=== PATIENT | female | born 1955 | race Caucasian/White ===

== ENCOUNTER → 2016-09-25 | Outpatient (REF) | payer SELFPAY ==
[2016-09-25 21:26] LABS: BACTERIA, URINE NONE SEEN; RBC, URINE 0-1 /hpf (0-3); SQUAMOUS EPITHELIAL CELL URINE SMALL AMOUNT /hpf (SMALL AMT)
[2016-09-25 21:27] LABS: HYALINE CAST, URINE NONE SEEN /lpf (0-1); MICROSCOPIC EXAM PERFORMED
== END ==
LOC: M LAB REF 17:21
PROVIDERS: ATTEND Internal Medicine Nephrology
DX: R31.9 Hematuria, unspecified (principal); I10 Essential (primary) hypertension; R80.9 Proteinuria, unspecified

== ENCOUNTER → 2017-03-25 | Outpatient (CLI) | payer OTHER ==
[~2017-03-25] MED LIST: AMLO10TA2 PO; ASPI1TAB PO; COUM1TAB17 PO; HYDR25TAB PO; LOSA50TA20 PO; NITR0.4S14 SL; OXYC1TAB23 PO; PRAV20TA2 PO; SERT50TA PO; TYLE650T35 PO; VITA1CAP7 PO
--- NOTE | 2017-03-25 10:52 | ECGEPIP ---
Stationary ECG Study [facility] Test Date: 2017-03-25 Pat Name: MACHO OSPINA Department: Room: - Gender: F Computer Technology Teacher: : 1955 Requested By: Jes Lopez Order Number: [id number] Reading MD: Jerilyn Leonardo Measurements Intervals [place] Rate: 50 P: 42 TX: 166 QRS: 55 QRSD: 104 T: 42 QT: 481 QTc: 441 Interpretive Statements SINUS BRADYCARDIA WITH MARKED SINUS ARRHYTHMIA NO PRIOR Electronically Signed On 03-25-2017 10:51:51 EDT by Jerilyn Leonardo
[2017-03-25 11:03] LABS: MEAN CORPUSCULAR HEMOGLOBIN 30.3 pg (27.0-33.0); MEAN CORPUSCULAR VOLUME 88.9 fl (80.0-96.0); RED CELL DISTRIBUTION WIDTH 12.9 % (11.5-14.5); WHITE BLOOD COUNT 5.2 10^3/uL (4.0-10.0)
[2017-03-25 11:11] LABS: ALBUMIN 3.8 GM/DL (3.2-5.2); ALBUMIN/GLOBULIN RATIO 1.12 (1.00-1.93); ALKALINE PHOSPHATASE 72 U/L (45-117); ALT/SGPT 40 U/L (12-78); ANION GAP 7 MEQ/L (8-16); AST/SGOT 24 U/L (15-37); BILIRUBIN,TOTAL 0.7 MG/DL (0.2-1.0); BLOOD UREA NITROGEN 12 MG/DL (7-18); CALCIUM LEVEL 9.8 MG/DL (8.8-10.2); CARBON DIOXIDE LEVEL 31 MEQ/L (21-32); CHLORIDE LEVEL 100 MEQ/L (98-107); CREATININE FOR GFR 0.56 MG/DL (0.55-1.02); GLOMERULAR FILTRATION RATE > 60.0 (>45); GLUCOSE, FASTING 105 MG/DL (80-110); POTASSIUM SERUM 4.2 MEQ/L (3.5-5.1); SODIUM LEVEL 138 MEQ/L (136-145); TOTAL PROTEIN 7.2 GM/DL (6.4-8.2)
[2017-03-25 11:13] LABS: INR 0.83
--- NOTE | 2017-03-26 01:42 | REP ---
Clinical: Arthritis . Comparison: None . Technique: PA and lateral. Findings: The mediastinum and cardiac silhouette are normal. The lung cortes are clear and without acute consolidation, effusion, or pneumothorax. The skeletal structures demonstrate age-related degenerative changes to the thoracic spine and relatively normal, age-appropriate bilateral shoulders. Impression: 1. No acute cardiopulmonary process. Signed by Mert Vitale MD 03/26/2017 01:33 A
== END ==
LOC: M ADMPAT 09:07
PROVIDERS: ATTEND Orthopaedic Surgery
DX: M17.12 Unilateral primary osteoarthritis, left knee (principal)

== ENCOUNTER 2017-04-01 09:09 | Inpatient (IN) | payer OTHER ==
[2017-03-25 10:05] VITALS: BP 124/64
--- NOTE | 2017-03-28 18:56 | HPE ---
DATE OF ADMISSION: 04/01/2017 HISTORY OF PRESENT ILLNESS: Mrs. Siddiqi is a pleasant female with continuing symptomatic left knee osteoarthritis. She consented for a left total knee arthroplasty per Dr. John Santamaria. Medical optimization per Starr Thompson. X-rays were consistent with advanced osteoarthritis. ALLERGIES: NAPROSYN. CURRENT MEDICATION LIST: Includes: - hydrochlorothiazide 50 mg - amlodipine besylate 10 mg - losartan potassium 50 mg - nitroglycerin 0.4 mg - magnesium 500 mg - vitamin D3, 5000 units - cimetidine 200 mg MEDICAL PROBLEM LIST: Includes: Symptomatic left knee osteoarthritis. Essential hypertension. Pure hypercholesterolemia. SURGICAL HISTORY: Coronary artery stenting in 2013. FAMILY HISTORY: Is positive for arthritis, diabetes, hypertension, hypercholesterolemia, and cancer. She is a former smoker. Consumes alcohol daily. Denies illicit drugs. REVIEW OF SYSTEMS: The patient denies chest pain, shortness of breath, dyspnea on exertion, fevers, chills, malaise, upper respiratory or urinary tract symptoms. PHYSICAL EXAMINATION: She is a pleasant, overweight female in no acute distress. Alert and oriented times three. Mood and affect are appropriate. Weight 173. Body Mass Index (BMI) 28.8. Height 65 inches. Temperature 98.1. There were no gross deformities about the lower extremities. She has positive tenderness to palpation about the left knee with crepitance and medial joint line tenderness. Bowel soft, nontender times four. Chest rises symmetrically. Neck supple; negative jugular venous distention (JVD) or bruits. Normocephalic. Lab, diagnostics, EKG, and chest x-ray were reviewed and were within normal limits. IMPRESSION: 1. Symptomatic left knee osteoarthritis. 2. Patient consented for a total knee arthroplasty per Dr. John Santamaria. 3. Medical optimization per Dr. Thompson. 4. 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 5. Sequential compression device (SCD) and thromboembolism deterrents (TEDs) in OR. Edited: zoe 04/01/2017 [id number] MTDD
[~2017-04-01] VITALS: Ht 160 cm; Wt 74.4 kg
[~2017-04-01 09:09] MED LIST changes: -COUM1TAB17 PO; -OXYC1TAB23 PO
[2017-04-01] MEDS ORDERED: ACETAMINOPHEN 500 MG TAB PO ONE (13:45)
[2017-04-01] MEDS ORDERED: LR 1,000 ML IV SCH ×3 (13:45→19:00)
[2017-04-01] MEDS ORDERED: fentaNYL 100 MCG/2 ML INJECTION (J3010) As Ordered ONE ×2 (14:26→15:38)
[2017-04-01] MEDS ORDERED: MIDAZOLAM INJ 2 MG/2 ML VIAL (J2250) As Ordered ONE ×2 (14:26→15:38)
[2017-04-01] MEDS ORDERED: ASPIRIN 81 MG CHEW TABLET PO ONE (15:00)
[2017-04-01] MEDS ORDERED: SCOPOLAMINE 1.5 MG TRANSDERMAL As Ordered ONE (15:01)
[2017-04-01] MEDS ORDERED: ASPIRIN 81 MG CHEW TABLET As Ordered ONE (15:03)
[2017-04-01] MEDS ORDERED: SCOPOLAMINE 1.5 MG TRANSDERMAL TOP ONE (15:30)
[2017-04-01] MEDS: fentaNYL 100 MCG/2 ML INJECTION (J3010) IV ONE ×2 (15:30→16:31)
[2017-04-01] MEDS: MIDAZOLAM INJ 2 MG/2 ML VIAL (J2250) IV ONE ×2 (15:31→16:31)
[2017-04-01] MEDS ORDERED: LIDOCAINE 2% INJ 100 MG/5 ML SDV (FOR ANES.) As Ordered ONE ×2 (15:38→17:59)
[2017-04-01] MEDS ORDERED: PROPOFOL 200 MG/20 ML VIAL As Ordered ONE ×3 (15:38→17:59)
[2017-04-01] MEDS ORDERED: ePHEDrine SULFATE 25 MG/5 ML(5MG/ML) SYRINGE As Ordered ONE (16:16)
[2017-04-01] MEDS ORDERED: PHENYLephrine HCL 500 MCG/5 ML (100MCG/ML) SYRINGE (J2370) As Ordered ONE (16:16)
[2017-04-01] MEDS ORDERED: EPINEPHrine INJ 1 MG/ML 1ML AMP As Ordered ONE (16:51)
[2017-04-01] MEDS ORDERED: ceFAZolin 1GM INJ (J0690) As Ordered ONE (16:51)
[2017-04-01] MEDS ORDERED: TRANEXAMIC ACID 100 MG/ML 10ML VIAL As Ordered ONE (16:51)
[2017-04-01] MEDS ORDERED: BUPIVACAINE LIPOSOME/PF 1.3% 20 ML VIAL (13.3MG/ML)(EXPAREL) As Ordered ONE (16:52)
[2017-04-01] MEDS ORDERED: ONDANSETRON 4MG/2ML VIAL (J2405) As Ordered ONE (17:08)
[2017-04-01] MEDS ORDERED: dexameTHASONE 10 MG/1 ML VIAL PRES.FREE (J1100) ONE (18:04)
[2017-04-01] MEDS ORDERED: ROPIvacaine 0.5% 30 ML INJECTION (J2795) ONE (18:04)
[2017-04-01] MEDS ORDERED: MORPHINE 1MG/ML IN 0.9% NACL 100ML IV BAG As Ordered ONE (18:28)
[2017-04-01] MEDS ORDERED: PERCOCET 5MG/325MG TAB PO PRN (19:00)
[2017-04-01] MEDS ORDERED: MORPHINE 1MG/ML IN 0.9% NACL 100ML IV BAG IV PRN (19:00)
[2017-04-01] MEDS ORDERED: NALBUPHINE HCL 10 MG/ML AMP (J2300) IV PRN (19:00)
[2017-04-01] MEDS ORDERED: METOCLOPRAMIDE INJ 10MG/2ML VIAL (J2765) IV PRN (19:00)
[2017-04-01] MEDS ORDERED: ACETAMINOPHEN TAB 650MG DOSE (2X325MG) PO PRN (19:00)
[2017-04-01] MEDS ORDERED: NALOXONE INJ 0.4 MG/1 ML VIAL (J2310) IV PRN (19:00)
[2017-04-01] MEDS ORDERED: EPIDURAL/PCA KEYS XX PRN (19:00)
[2017-04-01] MEDS ORDERED: MEPERIDINE INJ 25 MG/ML VIAL (J2175) IV PRN (19:00)
[2017-04-01] MEDS ORDERED: ONDANSETRON 4MG/2ML VIAL (J2405) IV PRN ×2 (19:00)
[2017-04-01] MEDS ORDERED: FLEET ENEMA PR PRN (19:00)
[2017-04-01] MEDS ORDERED: diphenhydrAMINE INJ 50MG/ML VIAL (J1200) IV PRN (19:00)
[2017-04-01] MEDS ORDERED: fentaNYL 100 MCG/2 ML INJECTION (J3010) IV PRN (19:00)
--- NOTE | 2017-04-01 19:10 | RO ---
DATE OF PROCEDURE: 04/01/2017 PREPROCEDURE DIAGNOSIS: Left knee degenerative arthritis. POSTPROCEDURE DIAGNOSIS: Left knee degenerative arthritis. PROCEDURE: Left total knee arthroplasty using a size #3 femoral component, a size 2.5 tibial tray, 12.5 rotating platform polyethylene insert and a 35 mm polyethylene button. Prosthesis made by José Miguel and [employer], it was a PFC knee, cruciate retaining. SURGEON: Dr. Jes Santamaria TAIL WORKER: Mr. Sarbjit Erazo ANESTHESIA: Spinal with left femoral nerve block. COMPLICATIONS: None. ESTIMATED BLOOD LOSS: SPECIMENS: Joint surface. DESCRIPTION OF PROCEDURE: Antibiotics were given intravenously preoperatively, then a successful left femoral nerve block and spinal anesthetic was induced. Tourniquet placed on the left upper thigh and not inflated. The left lower extremity was carefully prepped and draped in the usual sterile fashion. After appropriate time-out, the leg was elevated, tourniquet was inflated. A longitudinal incision was made for a medial parapatellar approach to the knee. Bovie cautery was used to coagulate the crossing vessels. The arthrotomy was performed and subperiosteal dissection around the proximal and medial portion of the tibia was performed, as well as dissecting around the posteromedial corner. Subperiosteal dissection around the proximal lateral tibial plateau was also performed. The patella was then everted and the knee was flexed, anterior cruciate ligament (ACL) debrided. Drill was placed down the center of the femoral canal with a distal femoral cutting jig set at 5 degree valgus at 10 mm resection level for a left knee. Block was secured, distal femoral cut performed. AP sizing jig measured for a size 3, the 3-degree external rotation block was pinned, followed by the 4-in-1 block applied to the distal femur. Then, the anterior, posterior, chamfer cuts performed, taking great care to protect the surrounding soft tissues. We then exposed the proximal tibia and used the extramedullary tibial cutting jig to attempt to be parallel to the mechanical axis of the tibia, referencing off the medial tibial condyle at 4 mm resection level, pinned the block into that position. Then, the secondary check with the extramedullary tl confirmed that it appeared to be parallel to the mechanical axis, then the proximal tibial osteotomy was then performed. A lamina senior engineering manager was then placed laterally, and we performed a completion medial meniscectomy and debridement of the posterior medial osteophytes. Then, we placed the lamina senior engineering manager medially and performed a completion lateral meniscectomy and debridement of the posterolateral osteophytes. The spacer block was placed; the 10 mm actually fit, was fairly stable but there was a little bit of increased laxity both to varus and valgus stress testing, both in flexion and in extension; thus, I thought the 12.5 would be better. I did trial that, and it clearly had improved the stability but otherwise things were nicely balanced in flexion and in extension. Then, we exposed the proximal tibia, sized for a 2.5 tray, it was pinned into position followed by the reamer and broach. Trial 12.5 was placed followed by the femur component trial and then brought the knee into extension, everted the patella, performed patellar osteotomy, sized for a 35 button, lug holes were drilled. Patellofemoral prosthesis was placed and patellofemoral tracking was anatomic. We then drilled the lug holes for the femur, then removed all of the trial components and injected Exparel around the periosteum of the femur and the tibia, as well as in the posterior capsule and the capsular edges. Mr. Sarbjit Erazo then mixed the cement on the back table as I prepared the bony surfaces for cementing with a copious amount of pulsatile lavage irrigant solution. Mr. Erazo was also critical to the success of the procedure by helping to manipulate the knee and apply appropriate soft tissue retraction so I could perform the operation smoothly and efficiently, helped to close the wound, amongst many other tasks. When all the bony surfaces were thoroughly dried, I cemented the tibial component, removed the excess cement, placed the polyethylene, then cemented the femoral component and removed excess cement, brought the knee into extension, cemented the patellar button, held it with a clamp, removed the excess cement. Waited until the cement had hardened, and then copiously irrigated the knee joint out as we were waiting for the cement to harden. Tranexamic acid was then placed into the knee. Then we began closing the apex of the arthrotomy with two #1 PDS sutures, medial parapatellar area was closed with a single PDS suture, then a double-armed #1 Stratafix was used to close the capsule, then the tourniquet was released. We copiously irrigated subdermal tissues after we closed the arthrotomy, then closed the skin with irish, covered by Adaptic dry sterile bulky dressing. The tourniquet was released after we had closed the arthrotomy. The patient was then transferred to the recovery room in stable condition. There were no intraoperative complications. Copy To: [facility]
[2017-04-01 20:05] VITALS: BP 134/77
[2017-04-01] MEDS ORDERED: SERTRALINE HCL 50 MG TAB PO PRN (20:15)
[2017-04-01 20:35] VITALS: BP 110/65
[2017-04-01] MEDS: PRAVASTATIN 20 MG TAB PO SCH (20:40)
[2017-04-01] MEDS ORDERED: WARFARIN SOD 5 MG TAB PO ONE (21:00)
[2017-04-01] MEDS ORDERED: SENOKOT S TAB PO SCH (21:00)
[2017-04-01 21:35] VITALS: BP 110/60
--- NOTE | 2017-04-01 21:41 | CR ---
DATE OF CONSULTATION: 04/01/2017 CONSULTATION REPORT FOR: Jes Santamaria MD PRIMARY CARE PROVIDER: Fariha Thompson MD Patient will be under the care of Dr. Barbra Saul tomorrow. REASON FOR CONSULTATION: Medical management. HISTORY OF PRESENT ILLNESS: This is a 61-year-old female patient with underlying medical history of hypertension, dyslipidemia, coronary artery disease, with osteoarthritis, cardiac stent 2013, admitted under orthopaedic service status post left total knee replacement by Dr. John Santamaria. Medical optimization done by Dr. Thompson. Medicine consulted for medical optimization. Patient seen in the postanesthesia care unit (PACU), currently comfortable, a bit drowsy, alert and oriented times three, in no acute distress. Denies any significant pain. Denies any chest pain, shortness of breath. Does have history of sleep apnea, but does not use continuous positive airway pressure (CPAP), does not tolerate CPAP. ALLERGIES: No known drug allergies. PAST MEDICAL HISTORY: 1. Hypertension. 2. Dyslipidemia. 3. Coronary artery disease. 4. Osteoarthritis. PAST SURGICAL HISTORY: 1. Coronary artery disease with stenting in 2013. 2. Hysterectomy. 3. Right knee meniscus surgery. FAMILY HISTORY: Positive for osteoarthritis, diabetes, hypertension, dyslipidemia. SOCIAL HISTORY: Patient is a former smoker, quit smoking many years ago. Consumes alcohol, two drinks daily, no history of withdrawal. REVIEW OF SYSTEMS: All other review of systems were negative. HOME MEDICATIONS: - acetaminophen 650 mg by mouth every 8 hours - Norvasc 10 mg by mouth daily - aspirin 81 mg by mouth daily - vitamin D 5000 units by mouth daily - hydrochlorothiazide 50 mg by mouth daily - losartan 50 mg by mouth daily - nitroglycerin 0.4 mg sublingual as needed - pravastatin 20 mg by mouth daily - Zoloft 50 mg by mouth daily as needed PHYSICAL EXAMINATION: VITAL SIGNS: Temperature 97.6, pulse 63, respirations 18, blood pressure 134/74, pulse oximetry 96% on two liters nasal cannula. GENERAL: Patient alert and oriented times three, in no acute distress. HEENT: Normocephalic, atraumatic. PULMONARY: Bilaterally clear to auscultation. CARDIAC: Regular rate and rhythm, normal S1, S2. ABDOMEN: Soft, nontender. Positive bowel sounds. EXTREMITIES: No clubbing, cyanosis, or edema. Able to wiggle bilateral toes. Surgical dressing clean, dry, and intact. Laboratory data pending. ASSESSMENT AND PLAN: This is a 61-year-old female patient with underlying medical history of hypertension, dyslipidemia, coronary artery disease, with osteoarthritis, admitted under orthopaedic service status post left total knee replacement surgery by Dr. John Santamaria. 1. Osteoarthritis with left total knee replacement surgery. Perioperative management, pain medication, perioperative antibiotics and fluids as well as deep venous thrombosis (DVT) prophylaxis and activity status as per orthopaedics. Physical therapy. Bowel regimen prescribed. 2. Hypertension. Resume blood pressure medication tomorrow. Will monitor kidney function and blood pressure. 3. Dyslipidemia. Continue home medication. 4. Coronary artery disease. Holding aspirin given patient is on Coumadin. Continue blood pressure medication as ordered. Followup INR. Continue losartan, hydrochlorothiazide, pravastatin. 5. Deep venous thrombosis (DVT) prophylaxis. Patient on Coumadin as per orthopaedic team. DISPOSITION: As per primary team.
[2017-04-01 22:35] VITALS: BP 110/58
[2017-04-01 23:35] VITALS: BP 104/81
[2017-04-02 00:35] VITALS: BP 104/47
[2017-04-02 04:32] VITALS: BP 125/63
[2017-04-02] MEDS ORDERED: PERCOCET 5MG/325MG TAB PO PRN (06:45)
[2017-04-02] MEDS ORDERED: ONDANSETRON 4 MG TAB (S0181) PO PRN (06:45)
[2017-04-02 07:15] LABS: MEAN CORPUSCULAR HEMOGLOBIN 30.1 pg (27.0-33.0); MEAN CORPUSCULAR HGB CONC 33.3 g/dl (32.0-36.5); MEAN CORPUSCULAR VOLUME 90.4 fl (80.0-96.0); RED CELL DISTRIBUTION WIDTH 12.7 % (11.5-14.5); WHITE BLOOD COUNT 10.5 10^3/uL (4.0-10.0)
[2017-04-02 07:28] LABS: INR 1.11
[2017-04-02 07:39] LABS: ANION GAP 7 MEQ/L (8-16); BLOOD UREA NITROGEN 14 MG/DL (7-18); CARBON DIOXIDE LEVEL 29 MEQ/L (21-32); CHLORIDE LEVEL 104 MEQ/L (98-107); CREATININE FOR GFR 0.63 MG/DL (0.55-1.02); GLOMERULAR FILTRATION RATE > 60.0 (>45); GLUCOSE, FASTING 126 MG/DL (80-110); MAGNESIUM LEVEL 1.7 MG/DL (1.8-2.4); POTASSIUM SERUM 4.3 MEQ/L (3.5-5.1); SODIUM LEVEL 140 MEQ/L (136-145)
[2017-04-02] MEDS: PERCOCET 5MG/325MG TAB PO PRN ×4 (07:46→22:02)
[2017-04-02] MEDS: SENOKOT S TAB PO SCH ×2 (08:27→21:00)
[2017-04-02] MEDS: VITAMIN D 1,000 INTERNATIONAL UNITS TABLET PO SCH (08:27)
[2017-04-02] MEDS: MOM 30ML SUSPENSION UDC PO SCH (08:27)
[2017-04-02] MEDS: MIRALAX *UNIT DOSE* 17GM PACKET PO SCH (08:27)
[2017-04-02] MEDS: hydroCHLOROthiazide 25 MG TAB PO SCH (08:28)
[2017-04-02] MEDS: LOSARTAN 50 MG TAB PO SCH (08:29)
[2017-04-02] MEDS: amLODIPine 10 MG TAB PO SCH (08:29)
[2017-04-02 10:00] VITALS: BP 101/65
[2017-04-02] MEDS ORDERED: MAG SULF 1GM/100ML (MAG RUN) 1 GM in APPROPRIATE DILUENT 1 EA IV ONE (12:45)
[2017-04-02 14:00] VITALS: BP 153/65
[2017-04-02] MEDS: diphenhydrAMINE 25 MG CAP PO PRN ×2 (15:18→22:01)
[2017-04-02] MEDS ORDERED: WARFARIN SOD 5 MG TAB PO ONE (17:00)
--- NOTE | 2017-04-02 17:35 | REP ---
AP AND LATERAL LEFT KNEE, TWO VIEWS: HISTORY: Knee replacement. The patient is status-post left total knee replacement. There is no acute fracture or dislocation. A small amount of subcutaneous air and surgical irish are present in the overlying soft tissue. IMPRESSION: The patient is status-post left total knee replacement. There is anatomic alignment. Signed by Landen Fernandez MD 04/03/2017 08:13 A
--- NOTE | 2017-04-02 17:47 | IPNPDOC ---
Subjective Date Seen The patient was seen on 04/02/17. Subjective Chief Complaint/HPI The patient is a 61-year-old female admitted with a reason for visit of Left Knee Arthritis. Events since last encounter No complaints this morning, pain is controlled, no nausea or vomiting , no chest pain or shortness of breath , no abdominal pain , Objective Physical Examination General Exam: Positive: Alert, Cooperative, No Acute Distress Eye Exam: Positive: PERRLA, Conjunctiva & lids normal, EOMI, Negative: Sclera icteric ENT Exam: Positive: Atraumatic, Mucous membr. moist/pink, Pharynx Normal Neck Exam: Positive: Supple, Negative: JVD, thyromegaly Chest Exam: Positive: Clear to auscultation, Normal air movement Heart Exam: Positive: Rate Normal, Regular Rhythm, Normal S1, Normal S2, Negative: Murmurs, Rubs Abdomen Exam: Positive: Normal bowel sounds, Soft, Negative: Tenderness, Hepatospenomegaly Extremity Exam: Positive: Normal pulses, Negative: Clubbing, Cyanosis, Edema Skin Exam: Positive: Nl turgor and temperature, Negative: Rash, Breakdown Assessment /Plan Problems (1) S/P total knee arthroplasty Status: Acute Problem Text: left total knee arthroplasty elective for advanced osteoarthritis. pain control and dvt prophylaxis as per orthopedics. (2) Hypertension Status: Chronic Problem Text: continue home medications with hold parameters. (3) Hyperlipidemia Status: Chronic Problem Text: continue pravastatin. (4) CAD (coronary artery disease) Status: Chronic Response to Treatment: Stable Plan/VTE VTE Prophylaxis Ordered?: Yes VS, I&O, 24H, Fishbone Vital Signs/I&O Vital Signs Date Time Temp Pulse Resp B/P (MAP) Pulse Ox O2 Delivery O2 Flow Rate FiO2 04/02/17 14:39 18 04/02/17 14:00 99.4 94 153/65 (94) 91 Room Air 04/02/17 04:32 2.0 I&O- Last 24 Hours up to 6 AM 04/03/17 06:00 Intake Total 480 ml Output Total 200 ml Balance 280 ml Laboratory Data 24H LABS Laboratory Tests 2 04/02/17 06:56: Nucleated Red Blood Cells % (auto) 0.0, Prothrombin Time 14.5, Prothromb Time International Ratio 1.11, Anion Gap 7L, Glomerular Filtration Rate > 60.0, Blood Urea Nitrogen 14, Creatinine 0.63, Sodium Level 140, Potassium Level 4.3, Chloride Level 104, Carbon Dioxide Level 29, Calcium Level 9.0, Magnesium Level 1.7L CBC/BMP Laboratory Tests 04/02/17 06:56 Red Blood Count 4.18, Mean Corpuscular Volume 90.4, Mean Corpuscular Hemoglobin 30.1, Mean Corpuscular Hemoglobin Concent 33.3, Red Cell Distribution Width 12.7 , Calcium Level 9.0 CASPER DIEGO MD Apr 02, 2017 17:47
[2017-04-02] MEDS: PRAVASTATIN 20 MG TAB PO SCH (21:00)
[2017-04-02 22:00] VITALS: BP 138/73
[2017-04-03] MEDS: PERCOCET 5MG/325MG TAB PO PRN ×3 (02:35→14:18)
[2017-04-03 06:00] VITALS: BP 145/72
[2017-04-03 07:27] LABS: MEAN CORPUSCULAR HEMOGLOBIN 29.9 pg (27.0-33.0); MEAN CORPUSCULAR HGB CONC 33.4 g/dl (32.0-36.5); MEAN CORPUSCULAR VOLUME 89.4 fl (80.0-96.0); RED CELL DISTRIBUTION WIDTH 12.8 % (11.5-14.5); WHITE BLOOD COUNT 9.3 10^3/uL (4.0-10.0)
[2017-04-03] MEDS: diphenhydrAMINE 25 MG CAP PO PRN (07:35)
[2017-04-03 07:45] LABS: INR 1.44
[2017-04-03 07:57] LABS: ANION GAP 5 MEQ/L (8-16); BLOOD UREA NITROGEN 17 MG/DL (7-18); CALCIUM LEVEL 8.3 MG/DL (8.8-10.2); CARBON DIOXIDE LEVEL 30 MEQ/L (21-32); CHLORIDE LEVEL 102 MEQ/L (98-107); CREATININE FOR GFR 0.53 MG/DL (0.55-1.02); GLOMERULAR FILTRATION RATE > 60.0 (>45); GLUCOSE, FASTING 102 MG/DL (80-110); MAGNESIUM LEVEL 2.1 MG/DL (1.8-2.4); POTASSIUM SERUM 3.7 MEQ/L (3.5-5.1); SODIUM LEVEL 137 MEQ/L (136-145)
[2017-04-03] MEDS: LOSARTAN 50 MG TAB PO SCH (09:00)
[2017-04-03] MEDS: hydroCHLOROthiazide 25 MG TAB PO SCH (09:00)
[2017-04-03 09:31] VITALS: BP 130/59
[2017-04-03] MEDS: MOM 30ML SUSPENSION UDC PO SCH (09:31)
[2017-04-03] MEDS: MIRALAX *UNIT DOSE* 17GM PACKET PO SCH (09:31)
[2017-04-03] MEDS: amLODIPine 10 MG TAB PO SCH (09:31)
[2017-04-03] MEDS: SENOKOT S TAB PO SCH (09:32)
[2017-04-03] MEDS: VITAMIN D 1,000 INTERNATIONAL UNITS TABLET PO SCH (09:32)
[2017-04-03] MEDS ORDERED: INFLUENZA QUADRIVALENT PF VACCINE 0.5ML SYRINGE (90686) IM ONE (12:45)
[2017-04-03] MEDS ORDERED: COUM1TAB17 PO (14:27)
[2017-04-03] MEDS ORDERED: OXYC1TAB23 PO (14:27)
[2017-04-03] MEDS ORDERED: WARFARIN SOD 5 MG TAB PO ONE (17:00)
--- NOTE | 2017-04-08 09:17 | DSES ---
DATE OF ADMISSION: 04/01/2017 DATE OF DISCHARGE: 04/03/2017 DISCHARGE DIAGNOSIS: Left knee arthritis status post left total knee arthroplasty. HISTORY: Joselyn is a 61-year-old female with progressively worsening left knee pain and stiffness. She had failed to improve with conservative treatment. She elected for a left total knee arthroplasty. PROCEDURE PERFORMED: Left total knee arthroplasty. HOSPITAL COURSE: The patient was admitted on the day of surgery and underwent left total knee arthroplasty without complications. She was up with physical therapy per their protocol, and her pain was controlled. She is going to resume preoperative medications and diet. COMPLICATIONS: None. DISCHARGE INSTRUCTIONS: The patient will followup in the office in 2 weeks for staple removal and wound check. She will use Coumadin and thromboembolic deterrent (CATINA) stockings for 30 days postoperatively for deep vein thrombosis (DVT) prophylaxis. She will use oral medications for pain control
== END 2017-04-03 14:40 | disposition home health service (06) | DRG 470 ==
LOC: M OR 13:32 → M MS5PR 20:00
PROVIDERS: ADMIT Orthopaedic Surgery; ATTEND Orthopaedic Surgery
PROC: 0SRD0J9 Replacement of Left Knee Joint with Synthetic Substitute, Cemented, Open Approach (ICD-10-PCS; principal; 2017-04-01 16:45)
DX: M17.12 Unilateral primary osteoarthritis, left knee (principal); I10 Essential (primary) hypertension; E78.00 Pure hypercholesterolemia, unspecified; E66.3 Overweight; I25.10 Atherosclerotic heart disease of native coronary artery without angina pectoris; G47.33 Obstructive sleep apnea (adult) (pediatric); K21.9 Gastro-esophageal reflux disease without esophagitis; Z79.899 Other long term (current) drug therapy; Z87.891 Personal history of nicotine dependence; Z95.5 Presence of coronary angioplasty implant and graft; Z68.28 Body mass index [BMI] 28.0-28.9, adult; Z88.6 Allergy status to analgesic agent